=== PATIENT | male | born 1960 | race Caucasian/White ===

== ENCOUNTER 2016-03-07 14:14 | Emergency (ER) | payer OTHER ==
[2016-03-07 14:19] VITALS: BP 130/88; TEMP 97.2; BMI 33.2
[2016-03-07] MEDS ORDERED: DUONEB NEB STA (14:29)
[2016-03-07] MEDS ORDERED: ATIVAN IM STA (14:29)
[2016-03-07] MEDS ORDERED: DECADRON 4 MG/ML SDV IM STA (14:29)
[2016-03-07 14:47] LABS: ABG BASE EXCESS -2 (-2.0-2.0); ABG HCO3 23.5 (22.0-26.0); ABG PCO2 40.3 mmHg (35-45); ABG PH 7.374 (7.35-7.45); ABG TCO2 25 (22.0-28.0)
[2016-03-07 14:47] LABS: BASOPHILS # (AUTO) 0.1 K/uL (0-0.2); EOSINOPHILS # (AUTO) 0.2 K/ul (0.0-0.7); EOSINOPHILS % (AUTO) 1.8 % (0.0-7.0); HEMOGLOBIN 14.7 g/dl (14.0-18.0); IMMATURE GRANULOCYTE % (AUTO) 0.2 % (0.0-5.0); LYMPHOCYTES # (AUTO) 2.6 K/uL (0.60-3.4); LYMPHOCYTES % (AUTO) 29.8 (10.0-50.0); MEAN CORPUSCULAR HEMOGLOBIN 30.8 pg (27.0-31.0); MEAN CORPUSCULAR HGB CONC 34.2 (31.8-35.4); MONOCYTES # (AUTO) 0.7 K/uL (0.4-2.0); MONOCYTES % (AUTO) 8.1 (0-10); NEUTROPHILS # (AUTO) 5.2 K/ul (2.0-6.9); NEUTROPHILS % (AUTO) 59.1; PLATELET COUNT 206 10^3/uL (140-440); RED BLOOD COUNT 4.78 10^6/ul (4.70-6.10); WHITE BLOOD COUNT 8.84 K/ul (4.2-10.2)
--- NOTE | 2016-03-07 15:06 | DI ---
EXAM: Chest two views CLINICAL INDICATION: Dyspnea. COMPARISON: 10/04/2014. FINDINGS: PA and lateral views of the thorax are provided. The pulmonary parenchyma is clear and there is no pleural abnormality. The cardiomediastinal silhou ette and visualized bony structures are unremarkable. IMPRESSION: Negative chest x-ray.
[2016-03-07 15:16] LABS: ALANINE AMINOTRANSFERASE 32 U/L (12-78); ALBUMIN 4.1 g/dL (3.4-5.0); ALBUMIN/GLOBULIN RATIO 1.37; ALKALINE PHOSPHATASE 49 U/L (50-136); ANION GAP 16.2; ASPARTATE AMINO TRANSFERASE 22 U/L (15-37); BILIRUBIN,TOTAL 0.37 mg/dL (0.00-1.20); BLOOD UREA NITROGEN 14 mg/dL (7-18); CALCIUM 9.1 mg/dL (8.2-10.2); CARBON DIOXIDE 23 mmol/L (21-32); CHLORIDE 106 mmol/L (98-107); CREATINE KINASE 228 U/L; CREATININE 1.32 mg/dL (0.60-1.10); GLUCOSE 117 mg/dL (70-100); POTASSIUM 4.2 mmol/L (3.5-5.1); SODIUM 141 mmol/L (136-145); TOTAL PROTEIN 7.1 g/dL (6.4-8.2)
[2016-03-07 15:18] LABS: CREATINE KINASE MB 3.1 ng/ml (0.0-3.6)
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
== END 2016-03-07 15:32 | disposition home or self-care (01) ==
LOC: ED 14:14
DX: F41.9 Anxiety disorder, unspecified (principal); G47.39 Other sleep apnea; F17.210 Nicotine dependence, cigarettes, uncomplicated
CPT/HCPCS: 36415; 80053; 82550; 82553; 82803; 83880; 84484; 85025; 85379; 93005; 93010; 94640; 96372; 99283

== ENCOUNTER 2016-03-20 01:32 | Emergency (ER) | payer OTHER ==
[2016-03-20 01:39] VITALS: BP 119/76; TEMP 96.4; BMI 35.7
[2016-03-20] MEDS ORDERED: SOLU-MEDROL 125 MG IM STA (01:49)
[2016-03-20] MEDS ORDERED: DUONEB NEB STA (01:49)
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
== END 2016-03-20 02:17 | disposition home or self-care (01) ==
LOC: ED 01:32
DX: J20.9 Acute bronchitis, unspecified (principal); F41.9 Anxiety disorder, unspecified; F17.210 Nicotine dependence, cigarettes, uncomplicated; Z79.899 Other long term (current) drug therapy
CPT/HCPCS: 94640; 96372; 99282

== ENCOUNTER 2016-08-05 22:23 | Emergency (ER) | payer OTHER ==
[2016-08-05 22:44] VITALS: BP 121/83; TEMP 102; BMI 34.0
[2016-08-05] MEDS ORDERED: SODIUM CHLORIDE 500 ML IV STA (22:55)
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
[2016-08-05] MEDS ORDERED: TYLENOL PO STA (22:59)
[2016-08-05 23:09] LABS: BASOPHILS % (AUTO) 0.3 % (0.0-3.0); EOSINOPHILS % (AUTO) 0.2 % (0.0-7.0); HEMATOCRIT 41.8 % (42.0-52.0); HEMOGLOBIN 14.7 g/dl (14.0-18.0); IMMATURE GRANULOCYTE % (AUTO) 0.3 % (0.0-5.0); LYMPHOCYTES # (AUTO) 1.3 K/uL (0.60-3.4); LYMPHOCYTES % (AUTO) 9.2 (10.0-50.0); MEAN CORPUSCULAR HEMOGLOBIN 31.5 pg (27.0-31.0); MEAN CORPUSCULAR HGB CONC 35.2 (31.8-35.4); MEAN CORPUSCULAR VOLUME 89.7 fl (80.0-94.0); MONOCYTES # (AUTO) 0.9 K/uL (0.4-2.0); NEUTROPHILS # (AUTO) 11.9 K/ul (2.0-6.9); PLATELET COUNT 193 10^3/uL (140-440); RED BLOOD COUNT 4.66 10^6/ul (4.70-6.10); WHITE BLOOD COUNT 14.18 K/ul (4.2-10.2)
[2016-08-05 23:30] LABS: ALBUMIN 3.8 g/dL (3.4-5.0); ALBUMIN/GLOBULIN RATIO 1.31; ANION GAP 13.1; BILIRUBIN,TOTAL 0.59 mg/dL (0.00-1.20); BUN/CREATININE RATIO 12.87; CALCIUM 9.1 mg/dL (8.2-10.2); CREATININE 1.01 mg/dL (0.60-1.10); POTASSIUM 4.1 mmol/L (3.5-5.1); TOTAL PROTEIN 6.7 g/dL (6.4-8.2)
--- NOTE | 2016-08-05 23:43 | CT ---
Exam: CT of the abdomen and pelvis without contrast History: Abdominal pain Technique: [address] of the abdomen and pelvis without intravascular contrast FINDINGS: Exam: CT of the abdomen and pelvis without contrast History: Abdominal pain Technique: [address] of the abdomen and pelvis without intravascular contrast FINDINGS: The lung bases are clear. No significant liver abnormality. The adrenals, pancreas and sp fela are unremarkable. The stomach and hiatus are unremarkable.The gallbladder appears normal. Hors eshoe kidney without hydronephrosis, inflammation or hydroureter. The appendix is normal. Bowel loo ps demonstrate normal caliber. No inflamatory change seen in the mesentery or retroperitoneum. Left colonic diverticulosis. Atherosclerotic calcification of the aorta without aneurysm. Colonic diverticulosis of the sigmoid. No inflammation of the pelvic fat. No free pelvic fluid. N ormal pelvic genitourinary structures. No acute findings of the skeleton. Impression: 1. No inflammatory process, bowel or urinary obstruction is seen. 2. Colonic diverticulosis without evidence of acute diverticulitis 3. Incidental horseshoe kidney
[2016-08-05] MEDS ORDERED: DECADRON 4 MG/ML SDV IVP STA (23:46)
== END 2016-08-06 00:35 | disposition home or self-care (01) ==
LOC: ED 22:23
DX: K52.9 Noninfective gastroenteritis and colitis, unspecified (principal); F17.210 Nicotine dependence, cigarettes, uncomplicated; E11.9 Type 2 diabetes mellitus without complications; E78.5 Hyperlipidemia, unspecified
CPT/HCPCS: 36415; 80053; 82150; 83605; 83690; 84145; 85025; 87040; 96361; 96374; 99284

== ENCOUNTER 2016-08-08 05:04 | Emergency (ER) | payer OTHER ==
[2016-08-08 05:05] VITALS: BMI 34.0
[2016-08-08] MEDS ORDERED: SODIUM CHLORIDE 1,000 ML IV STA (05:07)
[2016-08-08] MEDS ORDERED: ZOFRAN 4 MG/2 ML IVP STA (05:08)
[2016-08-08] MEDS ORDERED: DILAUDID 1 MG/ML SYRINGE IVP STA (05:08)
[2016-08-08 05:24] LABS: BASOPHILS # (AUTO) 0.1 K/uL (0-0.2); BASOPHILS % (AUTO) 0.4 % (0.0-3.0); EOSINOPHILS # (AUTO) 0.1 K/ul (0.0-0.7); EOSINOPHILS % (AUTO) 0.6 % (0.0-7.0); HEMATOCRIT 42.2 % (42.0-52.0); HEMOGLOBIN 14.8 g/dl (14.0-18.0); IMMATURE GRANULOCYTE % (AUTO) 0.3 % (0.0-5.0); LYMPHOCYTES # (AUTO) 1.4 K/uL (0.60-3.4); LYMPHOCYTES % (AUTO) 10.5 (10.0-50.0); MEAN CORPUSCULAR HEMOGLOBIN 31.2 pg (27.0-31.0); MEAN CORPUSCULAR HGB CONC 35.1 (31.8-35.4); MEAN CORPUSCULAR VOLUME 88.8 fl (80.0-94.0); MONOCYTES # (AUTO) 1.2 K/uL (0.4-2.0); MONOCYTES % (AUTO) 9.3 (0-10); NEUTROPHILS # (AUTO) 10.3 K/ul (2.0-6.9); NEUTROPHILS % (AUTO) 78.9; PLATELET COUNT 191 10^3/uL (140-440); RED BLOOD COUNT 4.75 10^6/ul (4.70-6.10); WHITE BLOOD COUNT 13.09 K/ul (4.2-10.2)
[2016-08-08 05:37] VITALS: BP 114/70
[2016-08-08 05:44] LABS: ALBUMIN 3.6 g/dL (3.4-5.0); ALBUMIN/GLOBULIN RATIO 1.16; ANION GAP 13.6; BILIRUBIN,TOTAL 0.63 mg/dL (0.00-1.20); BUN/CREATININE RATIO 12.03; CALCIUM 8.7 mg/dL (8.2-10.2); CREATININE 1.08 mg/dL (0.60-1.10); POTASSIUM 3.6 mmol/L (3.5-5.1); TOTAL PROTEIN 6.7 g/dL (6.4-8.2)
--- NOTE | 2016-08-08 06:44 | CT ---
EXAM: CT scan abdomen pelvis with and without contrast HISTORY: Lower abdominal pain COMPARISON: CT scan abdomen pelvis 08/05/2016 FINDINGS: Contiguous axial images obtained from lung bases to the symphysis pubis before and after uneventful administration intravenous contrast utilizing 3-mm collimation. Sagittal and coronal rec onstructions were imaged and reviewed.. The visualized lung bases are clear.. The gallbladder is f luid filled without cholelithiasis. Fatty infiltration is seen within the liver. The pancreas, spl een and adrenal glands have normal enhanced CT appearance.. Redemonstrated is a horseshoe kidney. Atherosclerotic changes are seen involving the aorta without aneurysm formation. There is normal timbo endix.. Diverticulosis without diverticulitis is seen within the descending and rectosigmoid colon. . There is bowel wall thickening with inflammatory changes involving the ascending, transverse and proximal descending colon. IMPRESSION: Colitis is seen involving the ascending, transverse and proximal descending colon. Diverticulosis of the left colon. ASVD without aneurysm. No evidence of free fluid.
[2016-08-08 06:59] LABS: ERYTHROCYTE SEDIMENTATION RATE 17 mm/hr (0-15); ESR INTERNAL QC INTERNAL QC VALID
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
[2016-08-08 07:07] VITALS: TEMP 99.6
== END 2016-08-08 07:27 | disposition left against medical advice (07) ==
LOC: ED 05:04
DX: K52.9 Noninfective gastroenteritis and colitis, unspecified (principal); E11.9 Type 2 diabetes mellitus without complications; E78.5 Hyperlipidemia, unspecified; F17.210 Nicotine dependence, cigarettes, uncomplicated; Z79.899 Other long term (current) drug therapy
CPT/HCPCS: 36415; 80053; 82150; 83690; 85025; 85651; 96361; 96374; 99284

== ENCOUNTER 2016-08-16 03:26 | Emergency (ER) ==
[2016-08-16 03:35] VITALS: BP 100/66; TEMP 98.4; BMI 32.5
[2016-08-16] MEDS ORDERED: PHENERGAN TAB PO STA (03:52)
[2016-08-16 03:58] LABS: BASOPHILS # (AUTO) 0.1 K/uL (0-0.2); BASOPHILS % (AUTO) 0.5 % (0.0-3.0); EOSINOPHILS % (AUTO) 0.3 % (0.0-7.0); HEMATOCRIT 43.7 % (42.0-52.0); IMMATURE GRANULOCYTE % (AUTO) 0.5 % (0.0-5.0); LYMPHOCYTES # (AUTO) 1.7 K/uL (0.60-3.4); LYMPHOCYTES % (AUTO) 17.2 (10.0-50.0); MEAN CORPUSCULAR HEMOGLOBIN 30.9 pg (27.0-31.0); MEAN CORPUSCULAR HGB CONC 34.3 (31.8-35.4); MEAN CORPUSCULAR VOLUME 89.9 fl (80.0-94.0); MONOCYTES # (AUTO) 0.9 K/uL (0.4-2.0); MONOCYTES % (AUTO) 8.9 (0-10); NEUTROPHILS # (AUTO) 7.1 K/ul (2.0-6.9); NEUTROPHILS % (AUTO) 72.6; PLATELET COUNT 194 10^3/uL (140-440); RED BLOOD COUNT 4.86 10^6/ul (4.70-6.10); WHITE BLOOD COUNT 9.75 K/ul (4.2-10.2)
[2016-08-16 04:25] LABS: ALANINE AMINOTRANSFERASE 18 U/L (12-78); ALBUMIN 3.6 g/dL (3.4-5.0); ALBUMIN/GLOBULIN RATIO 1.16; ALKALINE PHOSPHATASE 43 U/L (50-136); AMYLASE 89 U/L (25-115); ANION GAP 16.7; ASPARTATE AMINO TRANSFERASE 19 U/L (15-37); BILIRUBIN,TOTAL 0.55 mg/dL (0.00-1.20); BLOOD UREA NITROGEN 15 mg/dL (7-18); BUN/CREATININE RATIO 10.48; CALCIUM 8.6 mg/dL (8.2-10.2); CARBON DIOXIDE 20 mmol/L (21-32); CHLORIDE 102 mmol/L (98-107); CREATINE KINASE 90 U/L; CREATININE 1.43 mg/dL (0.60-1.10); GLUCOSE 126 mg/dL (70-100); LIPASE 39 U/L (8-78); POTASSIUM 3.7 mmol/L (3.5-5.1); SODIUM 135 mmol/L (136-145); TOTAL PROTEIN 6.7 g/dL (6.4-8.2)
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
== END 2016-08-16 05:28 | disposition home or self-care (01) ==
LOC: ED 03:26
DX: F41.9 Anxiety disorder, unspecified (principal); F17.210 Nicotine dependence, cigarettes, uncomplicated; E11.9 Type 2 diabetes mellitus without complications; E78.5 Hyperlipidemia, unspecified; Z79.899 Other long term (current) drug therapy
CPT/HCPCS: 36415; 80053; 82150; 82550; 83690; 84484; 85025; 93005; 93010; 99284